=== PATIENT | female | born 1955 | race Caucasian/White ===

== ENCOUNTER → 2021-09-08 11:24 | Outpatient (CLI) | payer OTHER, SELFPAY ==
[2021-09-08 15:41] LABS: COVID19 -Nasal RAPID Negative (Negative)
== END ==
PROVIDERS: Visit Provider Physician Assistant
DX: Z01.812 Encounter for preprocedural laboratory examination (principal); Z20.822 Contact with and (suspected) exposure to COVID-19
CPT/HCPCS: 87635

== ENCOUNTER 2021-09-10 08:01 | Day surgery (SDC) | payer OTHER, SELFPAY ==
--- NOTE | 2021-09-09 19:32 | PM.PREOP ---
Pre-operative Note COVID-19 COVID-19 status: Negative Interval Note History & Physical reviewed/Exam performed by Physician: Yes Changes to H&P: No
--- NOTE | 2021-09-10 08:06 | P.OP_ITS ---
Operative Date/Time/Diagnoses Date of procedure: 09/10/21 Time of procedure: 09:45 Procedure & Clinicians Procedure: Preoperative diagnoses: 1. Significant right cortical and Nuclear sclerotic cataract 2. Astigmatism which is to be corrected with a toric intraocular lens implant. 3. Multiple sclerosis 4. History of right eye trauma with a tennis ball including retinal tear laser surgery increasing risk of complications. 5. Hypertension 6. Obesity Postoperative diagnoses: 1. Right Cataract removal with phacoemulsification with toric posterior chamber intraocular lens implant placed. Procedure: Phacoemulsification with posterior chamber toric intraocular lens implant. Surgeon: Giselle Holloway MD Complications: None Specimen: None Implant: [id number] [place] 081 Blood loss: None Anesthesia: Retrobulbar with monitored standby Description of procedure: Patient presents with a complaint of decreased vision due to cataract which is affecting activities of daily living especially night driving. The patient wants surgery to improve vision and astigmatism. The patient understands the extra risk of surgery during the COVID-19 epidemic and wishes to proceed. She has also had history of trauma with a tennis ball and may have increased complication. patient has tested negative for active virus within 72 hours of the procedure. For increased safety capsular dye will be used. The patient was taken to the operating room and proparacaine drops placed. Indelible ink sheehan were placed at the 90 and 180 degree meridian. The patient was placed on the operating room table and given IV sedation. A retrobulbar block insert consisting of 6 cc of 2% xylocaine without epinephrine mixed half and half with 0.5% Marcaine with 1 cc of hyaluronidase added is placed between the medial and lateral 1/3 of the inferior orbital rim. The eye is manually massaged for 30 sec, prepped using Betadine solution, and draped in the usual sterile fashion. Temporal approach was made, a 1 mm side-port incision was made 90? from the proposed corneal wound. Phenylephrine 1.5% mixed with 1% xylocaine 0.2 cc was placed into the anterior chamber. An air bubble was placed followed by vision blue capsular dye. The extra air bubble was then removed using BSS. followed by Healon was then placed. A 2.6 mm clear incision with a 2.6 mm blade was placed at the 170 degree meridian. A 360 degree capsulorrhexis style capsulotomy was then performed with a cystitome needle on a Healon without zonular weakness. Hydrodelineation and hydrodissection were performed. The phacoemulsification unit is introduced, and sculpting used to groove the central lens. It is then removed in chopping mode. Epi nucleus is removed with epinuclear mode and irrigation aspiration was used to remove the peripheral cortex. The posterior capsule is polished. The intraocular lens is selected, inspected, power confirmed, and placed in the posterior chamber at the desired meridian of 81? The pupil was not constricted. The wound was stromally hydrated and tested for leaks, there was none and it was left sutureless. Vigamox 0.1 cc was placed into the anterior chamber. Kenalog 0.2 cc was placed in the superior subconjunctival space. A drop of antibiotic and was placed and the eye was patched and shielded. The patient was stable and returned to the recovery room in excellent condition. Dictated by: Giselle Holloway MD Copy to: [facility] Same procedure as scheduled: Yes
[2021-09-10 09:02] VITALS: BP 148/93; PULSE 80; RESP 16; TEMP 36.4; O2SAT 97; BMI 42.3
[2021-09-10] MEDS: PROPARACAINE 0.5% OPHTH SOL 2 DROPS EYE-OP (09:05)
[2021-09-10] MEDS: CATARACT EYE COMPOUND (10 DROPS/SYRINGE) 3 DROPS EYE-OP (09:10)
--- NOTE | 2021-09-10 09:28 | SUR.OPER ---
Supine on eye stretcher, head on extension cradle secured with tape. Arms tucked at sides with blanket. Pillow under knees.
[2021-09-10] MEDS: PHENYLEPHRINE/LIDOCAINE VIAL (OR) 0.2 ML EYE-OP (10:07)
[2021-09-10] MEDS: MOXIFLOXACIN INJ 4 MG/0.8 ML VIAL 0.5 MG EYE-OP (10:07)
[2021-09-10] MEDS: HYALURONATE SODIUM 30 MG-10 MG/ML SYRINGES 1 BOX INTRAOCULA (10:07)
[2021-09-10] MEDS: TRIAMCINOLONE 50 MG/5 ML VIAL INJ (10:08)
[2021-09-10] MEDS: LIDOCAINE 2% 4 ML, BUPIVACAINE 0.5% (PF) 4 ML, HYALURONIDASE 150 UNIT INJ (10:08)
[2021-09-10] MEDS: BALANCED SALT IRRIG SOLN NO.2 500 ML, EPINEPHrine 1 MG IRR (10:09)
[2021-09-10] MEDS: ERYTHROMYCIN OPHTH 1 GM OINT 1 APPLIC EYE-RIGHT (10:09)
[2021-09-10] MEDS: TRYPAN BLUE 0.5 ML SYRINGE INJ (10:10)
[2021-09-10 10:38] VITALS: BP 168/98; PULSE 83; RESP 16; TEMP 36.6; O2SAT 100
== END 2021-09-10 10:55 | disposition home or self-care (01) ==
LOC: OR 08:05
PROVIDERS: Referring Provider Ophthalmology; Visit Provider Ophthalmology
PROC: (CPT 66984; principal; 2021-09-10 09:45)
DX: H25.811 Combined forms of age-related cataract, right eye (principal); H52.201 Unspecified astigmatism, right eye; I10 Essential (primary) hypertension; E66.9 Obesity, unspecified; G35 Multiple sclerosis; M79.7 Fibromyalgia
CPT/HCPCS: 66984; J0171; J2250; J3301; J3470; V2787

== ENCOUNTER → 2021-09-22 14:19 | Outpatient (CLI) | payer OTHER, SELFPAY ==
[2021-09-22 15:54] LABS: COVID19 -Nasal RAPID Negative (Negative)
== END ==
PROVIDERS: Referring Provider Ophthalmology; Visit Provider Ophthalmology
DX: Z20.822 Contact with and (suspected) exposure to COVID-19 (principal)
CPT/HCPCS: 87635; C9803

== ENCOUNTER 2021-09-24 09:09 | Day surgery (SDC) | payer OTHER, SELFPAY ==
--- NOTE | 2021-09-22 19:56 | PM.PREOP ---
Pre-operative Note COVID-19 COVID-19 status: Negative Criteria for continued procedure: Expected advancement of disease process, Possibility delay results in more complex future surgery or treatment, Increased loss of function and Non-surgical alternatives not available or appropriate per current SOC Interval Note History & Physical reviewed/Exam performed by Physician: Yes Changes to H&P: No
--- NOTE | 2021-09-24 08:12 | PM.OP.1 ---
Operative Date/Time/Diagnoses Date of procedure: 09/24/21 Time of procedure: 09:45 Procedure & Clinicians Procedure: Preoperative diagnoses: 1. Left nuclear sclerotic and cortical cataract. 2. Multiple sclerosis 3. History of trauma from a tennis ball 4. Obesity 5. History of left treated retinal tear 6. Glaucoma suspect Postoperative diagnoses: Left phacoemulsification with posterior chamber intra-ocular lens. Surgeon: Giselle Holloway MD Complications: none Specimen: None Implant:[id number] Blood loss: None Anesthesia: Retrobulbar with monitored standby. Description of procedure: Dictated by: Giselle Holloway MD Post operative diagnoses: 1. Left cataract removed with phacoemulsification. 2. Placement of a posterior chamber intraocular lens. Procedure: Phacoemulsification with posterior chamber intraocular lens implant Surgeon: Giselle Holloway MD Blood loss: None Anesthesia: Retrobulbar with monitored standby Description of procedure: Patient has presented with decreased vision due to cataract which is affecting activities of daily living especially driving. The patient wants surgery to improve vision. She has had successful cataract surgery in her right eye and feels unbalanced that the left eye is very blurry. 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 She has high risk of complications due to previous trauma with a tennis ball. Delay in surgery will cause increased loss of function and higher complexity with of possible poor outcome and she wishes to proceed. She understands the extra risk of search of surgery during the COVID-19 epidemic and wished to proceed. The patient has tested negative for active COVID-19 virus within 72 hours of the procedure. The patient was taken to the operating room and given IV sedation. A retrobulbar block consisting of 6 cc of 2% xylocaine without epinephrine mixed half and half with 0.5% Marcaine with 1 cc of hyaluronidase added is placed between the medial and lateral 1/3 of the inferior orbital rim. The eye is manually massaged for 30 sec, prepped using Betadine solution, and draped in the usual sterile fashion. Temporal approach was made, a 1 mm side-port incision was performed 90 degrees from the planned corneal wound. Phenylephrine 1.5% mixed with 1% xylocaine 0.2 cc was placed into the anterior chamber. Endocoat followed by Healon was then placed. A 2.6 mm clear incision with a 2.6 mm blade was placed. A 360 degree capsulorrhexis style capsulotomy was then performed with a cystitome needle on a Healon with careful positioning due to her obesity. Hydrodissection and hydrodissection were performed. The phacoemulsification unit is introduced, and sculpting used to groove the central lens. It is then removed in chopping mode. Epi nucleus is removed with epinuclear mode and irrigation aspiration was used to remove the peripheral cortex. The posterior capsule is polished. The intraocular lens is selected, inspected, power confirmed, and placed in the posterior chamber. There was no evidence of zonular trauma during the surgery. wound was stromally hydrated and tested for leaks, there was none and was left sutureless. Intracameral moxifloxacin 0.1 cc was placed into the anterior chamber. Kenalog 0.2 cc was placed in the superior subconjunctival space. A drop of antibiotic and was placed and the eye was patched and shielded. The patient was stable and returned to the recovery room in excellent condition. Dictated by: Giselle Holloway MD Copy to: [facility] Same procedure as scheduled: Yes
[2021-09-24] MEDS: CATARACT EYE COMPOUND (10 DROPS/SYRINGE) 3 DROPS EYE-OP (09:34)
[2021-09-24] MEDS: PROPARACAINE 0.5% OPHTH SOL 2 DROPS EYE-OP (09:34)
[2021-09-24 09:52] VITALS: BP 134/76; PULSE 76; RESP 16; TEMP 36.4; O2SAT 97; BMI 46.5
[2021-09-24] MEDS: LIDOCAINE 2% 4 ML, BUPIVACAINE 0.5% (PF) 4 ML, HYALURONIDASE 150 UNIT INJ (10:56)
[2021-09-24] MEDS: MOXIFLOXACIN INJ 4 MG/0.8 ML VIAL 0.5 MG EYE-OP (11:01)
[2021-09-24] MEDS: PHENYLEPHRINE/LIDOCAINE VIAL (OR) 0.2 ML EYE-OP (11:01)
[2021-09-24] MEDS: HYALURONATE SODIUM 30 MG-10 MG/ML SYRINGES 1 BOX INTRAOCULA (11:01)
[2021-09-24] MEDS: BALANCED SALT IRRIG SOLN NO.2 500 ML, EPINEPHrine 1 MG IRR (11:02)
[2021-09-24] MEDS: TRIAMCINOLONE 50 MG/5 ML VIAL INJ (11:02)
[2021-09-24 11:15] VITALS: BP 138/82; PULSE 71; RESP 20; TEMP 36.7; O2SAT 98
== END 2021-09-24 11:30 | disposition home or self-care (01) ==
PROVIDERS: Referring Provider Ophthalmology; Visit Provider Ophthalmology
PROC: (CPT 66984; principal; 2021-09-24 10:45)
DX: H25.812 Combined forms of age-related cataract, left eye (principal); G35 Multiple sclerosis; E66.9 Obesity, unspecified; H40.009 Preglaucoma, unspecified, unspecified eye; M79.7 Fibromyalgia
CPT/HCPCS: 66984; J0171; J2250; J3301; J3470

== ENCOUNTER → 2022-06-28 07:22 | Outpatient (CLI) | payer OTHER, SELFPAY ==
--- NOTE | 2022-06-28 | DI.MRI.S_ITS ---
PROCEDURE: MR CERVICAL SPINE WO/W CON INDICATIONS: MULTIPLE SCLEROSIS TECHNIQUE: Noncontrast sagittal T1 spin echo and T2 fast spin echo, sagittal STIR, foraminal oblique sagittal T2 fast spin echo, axial gradient echo or T2 fast spin echo through the cervical spine. After the administration of contrast, axial and sagittal T1 spin echo with fat saturation through the cervical spine. COMPARISON: [facility], MR, MR CERVICAL SPINE WITH/WITHOUT CONTRAST, 02/07/2019, 10:37. FINDINGS: Image quality: Excellent. Alignment and curvature: Normal alignment. Marrow: Marrow is normal in overall signal, without suspicious enhancement. Spinal cord: Visualized spinal cord has normal size and signal. No cerebellar tonsillar herniation. No abnormal intramedullary enhancement. Paraspinous soft tissues: No paravertebral masses or suspicious enhancement. Degenerative and surgical changes: Postsurgical changes of C3-C4 ACDF. Hardware grossly normal in appearance. No significant spinal canal stenosis at any level in the cervical spine. Moderate neural foraminal narrowing on the right at C4-C5 and C5-C6. Severe neural foraminal narrowing on the left at C4-C5 and C5-C6. IMPRESSION: No cervical cord abnormality to suggest a demyelinating lesion. Severe left and moderate right neural foraminal narrowing at both C4-C5 and C5-C6. Dictated by: Ji Childs M.D. on 06/29/2022 at 14:58 Approved by: Ji Childs M.D. on 06/29/2022 at 15:02
--- NOTE | 2022-06-28 | DI.MRI.S_ITS ---
PROCEDURE: MR HEAD/BRAIN WO/W CON INDICATIONS: MULTIPLE SCLEROSIS TECHNIQUE: Noncontrast axial T1 spin echo, axial T2 fast spin echo, sagittal and axial FLAIR, coronal T2 fast spin echo, axial gradient echo, axial diffusion and ADC through the brain. After the administration of contrast, axial and coronal and sagittal 3D VIBE or T1 spin echo with fat saturation through the brain. COMPARISON: [facility], MR, MR BRAIN WITHOUT CONTRAST, 02/07/2019, 10:37. FINDINGS: Numerous previously described T2/FLAIR hyperintense subcortical and periventricular white matter lesions are redemonstrated. There are a few lesions which are larger and more conspicuous on the current study, for example a lesion in the subcortical right frontal lobe on series 19, image 14 measuring 8 millimeters compared with 5 millimeters previously and with greatly increased conspicuity when compared with the previous exam. Two additional lesions in the deep white matter on series 19, image 14, 1 within the anterior left frontal lobe and another within the left posterior frontal lobe are new from previous exam. Periventricular T2 hyperintensity along the left lateral ventricle atrium is increased in conspicuity. No convincing infratentorial signal abnormality. No abnormal brain parenchymal enhancement on postcontrast images. No unexpected intracranial susceptibility or restricted diffusion. No mass effect or midline shift. No gross orbital abnormality. Paranasal sinuses and mastoid air cells are predominantly clear. IMPRESSION: Numerous foci T2/FLAIR hyperintense white matter lesions consistent with a demyelinating process such as multiple sclerosis. Increased number and size/conspicuity of a few lesions as detailed above, suggestive of disease progression when compared with 02/07/2019 exam. No enhancing lesion to indicate active demyelination. Dictated by: Ji Childs M.D. on 06/29/2022 at 15:03 Approved by: Ji Childs M.D. on 06/29/2022 at 15:08
--- NOTE | 2022-06-28 09:08 | DI.MRI.S_ITS ---
PROCEDURE: MR THORACIC SPINE WO/W CON INDICATIONS: MULTIPLE SCLEROSIS TECHNIQUE: Noncontrast sagittal T1 spin echo and T2 fast spin echo, sagittal STIR, axial T1 and T2 fast spin echo through the thoracic spine. After the administration of contrast, axial and sagittal T1 spin echo with fat saturation through the thoracic spine. COMPARISON: [facility], RG, MRI T-SPINE W/WO CONTRAST, 08/26/2017, 12:45. FINDINGS: Image quality: Excellent. Alignment and curvature: Normal thoracic vertebral body height and alignment. Marrow: No suspicious focal marrow signal abnormality or bone marrow edema. Spinal cord: Visualized spinal cord is of normal signal and size, without abnormal enhancement. Regional soft tissues: No prevertebral or paraspinous soft tissue mass or edema. Miscellaneous: Central canal and foramina appear widely patent at all scanned levels. IMPRESSION: No cord signal abnormality in the thoracic spine. No significant thoracic spinal canal or neural foraminal stenosis. No pathologic enhancement. Dictated by: Ji Childs M.D. on 06/29/2022 at 14:55 Approved by: Ji Childs M.D. on 06/29/2022 at 14:57
== END ==
PROVIDERS: Referring Provider Psychiatry & Neurology Neurology; Visit Provider Psychiatry & Neurology Neurology
DX: G35 Multiple sclerosis (principal); M48.02 Spinal stenosis, cervical region
CPT/HCPCS: 70553; 72156; 72157; A9579